=== PATIENT | male | born 1975 ===

== ENCOUNTER 2017-09-29 13:23 | Emergency (ER) | payer OTHER, BC ==
[~2017-09-29] VITALS: Ht 172.7 cm; Wt 89.4 kg
[~2017-09-29 13:23] MED LIST: ATEN25; ATEN50 PO; CEPH500 PO; EPIN.3I IM; HYDACE5 PO; LISI20 PO; MUPI2TO TOP; TRIA15CR3 TOP
[2017-10-01 10:44] LABS: HCV Non Reactive (NR)
== END 2017-09-29 14:42 | disposition home or self-care (01) ==
LOC: ER 13:23
PROVIDERS: Physician Assistant
DX: Z77.21 Contact with and (suspected) exposure to potentially hazardous body fluids (principal); I10 Essential (primary) hypertension; Z88.0 Allergy status to penicillin; Z79.899 Other long term (current) drug therapy; Y99.0 Civilian activity done for income or pay
CPT/HCPCS: 36415; 84460; 86703; 86704; 86706; 86803; 87340; 87389; 99283

== ENCOUNTER 2019-01-25 05:54 | Day surgery (SDC) | payer BC ==
[~2019-01-25 05:54] MED LIST changes: +CREATINE100 GM PO; +SERTRALINE PO
--- NOTE | 2019-01-25 06:43 | NUR ---
History, Chart, Medications and Allergies reviewed before start of procedure. Patient confirms NPO status and agrees with scheduled surgery. Patient reports completing Chlorhexadine shower X2 prior to admission to hospital. Patient States Post-Procedure ride home has been arranged his significant other.
--- NOTE | 2019-01-25 09:49 | NUR ---
Patient up to Ambulate independently. Gait steady. Discharge instructions reviewed with patient. Patient verbalizes understanding. Copy given to patient to take home. Patient States Post-Procedure ride home has been arranged. Discharged via wheelchair to private car for ride home.
== END 2019-01-25 22:53 | disposition home or self-care (01) ==
LOC: ORSCMMR 05:54 → ORD 07:30 → ORSCMMR 07:30
PROVIDERS: Surgery
PROC: 0WUF0JZ Supplement Abdominal Wall with Synthetic Substitute, Open Approach (ICD-10-PCS; principal; 2019-01-25 07:30)
DX: K43.6 Other and unspecified ventral hernia with obstruction, without gangrene (principal); I10 Essential (primary) hypertension; Z87.891 Personal history of nicotine dependence; K21.9 Gastro-esophageal reflux disease without esophagitis; Z79.899 Other long term (current) drug therapy
CPT/HCPCS: A9270-GY; C1781; J0330; J0690; J1100; J1885; J2250; J2370; J2405; J2704; J3010; J7120

== ENCOUNTER 2019-03-26 21:31 | Emergency (ER) | payer BC ==
[~2019-03-26] VITALS: Ht 172.7 cm; Wt 86.2 kg
[2019-03-26] MEDS ORDERED: PRED10 PO (23:03)
== END 2019-03-26 23:10 | disposition home or self-care (01) ==
LOC: ER 21:31
DX: L23.7 Allergic contact dermatitis due to plants, except food (principal); I10 Essential (primary) hypertension; Z88.0 Allergy status to penicillin; Z87.891 Personal history of nicotine dependence; Z79.899 Other long term (current) drug therapy
CPT/HCPCS: 96372; 99283-25; J2930; Q0163

== ENCOUNTER 2020-04-21 23:20 | Emergency (ER) | payer BC ==
[~2020-04-21] VITALS: Ht 172.7 cm; Wt 88.5 kg
[~2020-04-21 23:20] MED LIST changes: +PRED10 PO
[2020-04-22 00:57] LABS: Source, Urine Voided
[2020-04-22 01:00] LABS: Bilirubin, Urine Neg (Neg); Blood, Urine Neg (Neg); Glucose Qualitative, Urine Neg (Neg); Ketones, Urine Neg (Neg); Leukocyte Esterase, Urine Neg (Neg); Nitrite, Urine Neg (Neg); Protein, Urine Neg (Neg); Urobilinogen, Urine NORM (Normal)
[2020-04-22 01:01] LABS: Appearance, Urine Clear (Clear); Color, Urine Yellow (P-Yellow)
[2020-04-23 20:10] LABS: CHLAMYDIA TRACHOMATIS, NAA Negative (Negative); NEISSERIA GONORRHOEAE, NAA Negative (Negative)
== END 2020-04-22 03:28 | disposition home or self-care (01) ==
LOC: ER 23:20
PROVIDERS: Emergency Medicine
DX: N50.812 Left testicular pain (principal); I10 Essential (primary) hypertension; Z88.0 Allergy status to penicillin; Z79.899 Other long term (current) drug therapy; Z87.891 Personal history of nicotine dependence
CPT/HCPCS: 76870; 81003; 87491; 87591; 99284-25

== ENCOUNTER 2022-08-21 07:39 | Emergency (ER) | payer SELFPAY ==
[~2022-08-21] VITALS: Ht 172.7 cm; Wt 93.0 kg
[2022-08-21] MEDS ORDERED: CEFD300 PO (08:45)
[2022-08-21] MEDS ORDERED: Ocuflox5 ML BOTHEYES (08:45)
== END 2022-08-21 08:53 | disposition home or self-care (01) ==
LOC: ER 07:39
DX: H10.9 Unspecified conjunctivitis (principal); H66.91 Otitis media, unspecified, right ear; I10 Essential (primary) hypertension; Z79.899 Other long term (current) drug therapy; Z87.891 Personal history of nicotine dependence; Z88.0 Allergy status to penicillin
CPT/HCPCS: 99283